=== PATIENT | male | born 1985 | race Caucasian/White ===

== ENCOUNTER 2017-06-23 11:07 | Emergency (ER) | payer OTHER, MEDICAID ==
[~2017-06-23] VITALS: Ht 170.2 cm; Wt 103.6 kg
[2017-06-23 11:06] VITALS: BP 112/71
--- NOTE | 2017-06-23 11:22 | NUR ---
Patient ambulated to bed 3 with family. RN evaluating patient at bedside.
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
--- NOTE | 2017-06-23 11:31 | NUR ---
Patient being evaluated by DR OHARA at bedside.
[2017-06-23] MEDS ORDERED: LORazepam 1 MG TAB PO ONE (11:40)
--- NOTE | 2017-06-23 11:47 | NUR ---
X RAY AT BEDSIDE.
[2017-06-23 12:12] LABS: RED CELL DISTRIBUTION WIDTH 11.9 % (11.6-13.7); WHITE BLOOD COUNT (AUTO) 8.2 K/uL (4.8-10.8)
[2017-06-23 12:16] LABS: ANION GAP 9.6 (8-16); CARBON DIOXIDE 28.3 mmol/L (21-32); POTASSIUM 3.9 mmol/L (3.5-5.1)
[2017-06-23 12:24] LABS: HEMATOCRIT 46.3 % (36-52); HEMOGLOBIN 15.3 g/dL (12.0-18.0); MEAN CORPUSCULAR HEMOGLOBIN 29 pg (27-31); MEAN CORPUSCULAR HGB CONC 33 g/dL (33-37); MEAN CORPUSCULAR VOLUME 89 fL (80-94); PLATELET COUNT (AUTO) 208 K/uL (140-450); RED BLOOD CELL COUNT(AUTO) 5.23 MIL/uL (4.20-6.10)
[2017-06-23 12:30] LABS: THYROID STIMULATING HORMONE 0.84 uIU/mL (0.34-3.74); TOTAL BILIRUBIN 0.3 mg/dL (0.0-1.0)
[2017-06-23 12:35] LABS: EOSINOPHILS % (MANUAL) 2 % (0-4); LYMPHOCYTES % (MANUAL) 23 % (20-46); MONOCYTES % (MANUAL) 9 % (5-12)
[2017-06-23 12:46] VITALS: BP 121/76
--- NOTE | 2017-06-23 12:46 | NUR ---
Patient discharged with v/s stable. Written and verbal after care instructions given and explained. Patient verbalized understanding. Ambulatory with unsteady gait with assistance. All questions addressed prior to discharge. Advised to follow up with PMD.
[2017-06-23 13:17] LABS: APPEARANCE,URINE CLEAR (CLEAR); BILIRUBIN,URINE NEGATIVE (NEGATIVE); BLOOD, URINE NEGATIVE (NEGATIVE); COLOR,URINE YELLOW (YELLOW); LEUKOCYTE ESTERASE ,URINE NEGATIVE (NEGATIVE); NITRITE, URINE NEGATIVE (NEGATIVE); UGLUCOSE NEGATIVE (NEGATIVE)
[2017-06-23 13:22] LABS: BARBITURATE, URINE NEG. ng/ml (NEG <=200); BENZODIAZEPINE, URINE NEG. ng/mL (NEG <=200); CANNABINOID, URINE NEG. ng/mL (NEG <=50); COCAINE, URINE NEG. ng/mL (NEG <=300); OPIATE, URINE NEG. ng/mL (NEG <=2000); PHENCYCLIDINE SCREEN,URINE NEG. ng/mL (NEG <=25)
== END 2017-06-23 12:46 | disposition home or self-care (01) ==
LOC: MED 11:07
DX: F41.9 Anxiety disorder, unspecified (principal); F32.9 Major depressive disorder, single episode, unspecified; F12.10 Cannabis abuse, uncomplicated; Z88.8 Allergy status to other drugs, medicaments and biological substances
CPT/HCPCS: 36415; 71010; 80053; 80173; 80305; 81003; 84443; 85025; 93005; 99285; Q0092